=== PATIENT | male | born 2000 | race Caucasian/White ===

== ENCOUNTER 2023-03-18 22:39 | Emergency (ER) | payer SELFPAY ==
[2023-03-18 22:41] VITALS: BP 129/64; PULSE 86; RESP 16; TEMP 36.8; O2SAT 97; BMI 20.2
--- NOTE | 2023-03-18 22:43 | ED_ITS ---
HPI - Skin/Abscess/Foreign Bdy General: Chief complaint: Wound/Laceration Stated complaint: Left finger infection Time Seen by Provider: 03/18/23 22:41 History of Present Illness: Patient reports yesterday he got a splinter in his distal left middle finger and then smashed his finger twice afterwards. Patient has some bruising and tenderness to the distal middle finger of the left hand. Patient has good range of motion of the finger. Cap refill is intact. Sensation is intact. Patient states his tetanus is up-to-date. Review of Systems General: Reports: 10 or more systems reviewed and unremarkable except in HPI and below Musc: Reports: extremity pain and extremity swelling Physical Exam Const: COMMON NORMALS: alert HENMT: COMMON NORMALS: normocephalic HEAD & SCALP: normocephalic MOUTH: Normal oral and palatal mucosa present Neck/C-Spine: COMMON NORMALS: full ROM Resp: COMMON NORMALS: normal respiratory effort and clear to auscultation bilaterally AUSCULTATION: clear to auscultation bilaterally Cardio: COMMON NORMALS: regular rate RATE: regular rate Back/Pelvis: COMMON NORMALS: thoracic and lumbar spine normal to inspection Extremity: LEFT UPPER EXTREMITY: Yes hand & digits (Middle finger distal swelling and ecchymosis, puncture wound) Neuro: SENSORIUM/ORIENTATION: Yes alert Skin: TRAUMA: puncture (Distal middle finger. Left hand.) Course Vital Signs: Vital signs: Vital Signs Temperature 98.2 F 03/18/23 22:41 Pulse Rate 86 03/18/23 22:41 Respiratory Rate 16 03/18/23 22:41 Blood Pressure 129/64 03/18/23 22:41 Pulse Oximetry 97 03/18/23 22:41 Oxygen Delivery Me thod Room Air 03/18/23 22:41 MDM - Skin/Abscess/Foreign Bdy Medicial Decision Making Patient comes in for evaluation of injury to the left hand middle finger. Patient reports getting a splinter in it yesterday, was able to remove the splinter, and then smashed it twice. Patient works at a [employer]. Differential diagnosis includes retained foreign body, fracture of the finger, contusion, wound infection. X-ray noted no fracture or foreign body. Reviewed exam with patient with recommendations for treatment and follow-up. Patient reported understanding and agreed to plan. Patient was stable and discharged home. XR interpretation done by ED provider, pending radiology final review Discharge Plan Discharge Patient Disposition: Home Clinical Impression: Puncture wound of finger of left hand Qualifiers: Encounter type: initial encounter Qualified Code(s): S61.239A - Puncture wound without foreign body of unspecified finger without damage to nail, initial encounter Condition: Stable Prescriptions: New amoxicillin-pot clavulanate 875-125 mg tablet 1 tab PO BID Qty: 14 0RF Discharge Orders: Discharge ED (Routine); Ordered 03/18/23 Ordered By: Michael Gómez Discharge Diet: Usual diet Discharge Activity: Increase activity as tolerated Patient Instructions: Puncture Wound (ED) Activity Restrictions/Additional Instructions: Keep wound clean and dry as much as possible. Keep wound covered while working. Wear gloves to protect wound. Take oral antibiotic Augmentin, amoxicillin with potassium clavulanate, 875 mg 1 tablet 2 times a day for the next 7 days. Follow-up with primary care as needed. Return to ED for worsening symptoms such as high fever, increasing pain and swelling to the finger, or new concerns. 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
--- NOTE | 2023-03-18 22:45 | XRR_ITS ---
PROCEDURE INFORMATION: Exam: XR Left Hand Exam date and time: 03/18/2023 10:51 PM Age: 22 years old Clinical indication: Pain; Left; Patient HX: Patient says he thinks he has an infection in third finger from a splinter, small dark spot was visible. Patient also said he smashed his hand at work 3 times yesterday. ; Additional info: Middle finger crush injury TECHNIQUE: Imaging protocol: Radiologic exam of the left hand. Views: 3 or more views. COMPARISON: No relevant prior studies available. FINDINGS: Bones/joints: Normal. Soft tissues: Normal. XR/XR hand LT min 3V* [id number] IMPRESSION: No acute findings.
[2023-03-18] MEDS: amoxicillin-clav 875-125 mg Tablet 1 TAB PO (23:15)
[2023-03-18 23:17] VITALS: BP 120/71; PULSE 85; RESP 18; O2SAT 99
== END 2023-03-18 23:21 | disposition home or self-care (01) ==
PROVIDERS: Emergency Provider Nurse Practitioner Family
DX: S61.239A Puncture wound without foreign body of unspecified finger without damage to nail, initial encounter (principal); W45.8XXA Other foreign body or object entering through skin, initial encounter
CPT/HCPCS: 73130; 99283

== ENCOUNTER → 2024-12-28 08:44 | Outpatient (BNVA) | payer SELFPAY | PROVIDERS: Visit Provider Nurse Practitioner | DX: R52 Pain, unspecified (principal) | CPT/HCPCS: 73070 ==